=== PATIENT | male | born 1960 | race Caucasian/White ===

== ENCOUNTER 2017-10-20 16:36 | Outpatient (CLI) | payer OTHER ==
[2017-10-20 16:52] LABS: BASOPHILS % (AUTO) 0.4 % (0.0-3.0); EOSINOPHILS # (AUTO) 0.1 K/ul (0.0-0.7); EOSINOPHILS % (AUTO) 0.6 % (0.0-7.0); HEMATOCRIT 47.1 % (42.0-52.0); HEMOGLOBIN 16.6 g/dl (14.0-18.0); IMMATURE GRANULOCYTE % (AUTO) 0.3 % (0.0-5.0); LYMPHOCYTES # (AUTO) 2.1 K/uL (0.60-3.4); LYMPHOCYTES % (AUTO) 27.1 (10.0-50.0); MEAN CORPUSCULAR HEMOGLOBIN 32.6 pg (27.0-31.0); MEAN CORPUSCULAR HGB CONC 35.2 (31.8-35.4); MEAN CORPUSCULAR VOLUME 92.5 fl (80.0-94.0); MONOCYTES # (AUTO) 0.6 K/uL (0.4-2.0); MONOCYTES % (AUTO) 8.2 (0-10); NEUTROPHILS % (AUTO) 63.4; PLATELET COUNT 111 10^3/uL (140-440); RED BLOOD COUNT 5.09 10^6/ul (4.70-6.10); WHITE BLOOD COUNT 7.81 K/ul (4.2-10.2)
[2017-10-20 17:29] LABS: ALBUMIN 3.9 g/dL (3.4-5.0); ALBUMIN/GLOBULIN RATIO 1.18; ANION GAP 9.5; BILIRUBIN,TOTAL 0.4 mg/dL (0.00-1.20); BUN/CREATININE RATIO 11.22; CALCIUM 9.8 mg/dL (8.2-10.2); CHOL/HDL RATIO 4.3 (4.5-6.4); CREATININE 0.98 mg/dL (0.60-1.10); POTASSIUM 4.5 mmol/L (3.5-5.1); TOTAL PROTEIN 7.2 g/dL (6.4-8.2)
== END 2017-10-20 16:37 | disposition home or self-care (01) ==
LOC: LAB 16:36
PROVIDERS: ATTEND Emergency Medicine
DX: E78.5 Hyperlipidemia, unspecified (principal); I10 Essential (primary) hypertension
CPT/HCPCS: 36415; 80053; 80061; 84443; 85025

== ENCOUNTER 2018-01-18 15:19 | Outpatient (CLI) | END 2018-01-18 15:20 | disposition home or self-care (01) | LOC: RHC-LAB 15:19 | PROVIDERS: ATTEND Emergency Medicine | DX: E78.5 Hyperlipidemia, unspecified (principal); I10 Essential (primary) hypertension; Z12.5 Encounter for screening for malignant neoplasm of prostate | CPT/HCPCS: 36415; 80053; 80061; 84443; 85025 ==

== ENCOUNTER 2018-01-25 14:01 | Outpatient (CLI) ==
--- NOTE | 2018-01-25 16:11 | DI ---
EXAM: LEFT SHOULDER HISTORY: Left shoulder pain FINDINGS: Left shoulder three-view. Bone and joint structures are within normal limits. There is no joint dislocation or fracture identified. Bone density and soft tissues are unremarkable. IMPRESSION: Within normal limits.
--- NOTE | 2018-01-25 16:14 | DI ---
Exam: Three x-rays of the cervical spine. Comparison: None available. Reason for exam: Cervicalgia. FINDINGS: Multilevel degenerative disease with vertebral body height loss and osteophyte formation. There is straightening of the cervical lordotic curve. No evidence of listhesis. The dens appears intact on the open-mouth odontoid view. The prevertebral soft tissues are within normal limits. Impression: 1. Multilevel age indeterminate vertebral body height loss with degenerative disease seen throughout the cervical spine and straightening of the cervical lordotic curve. If clinical concern exists for radiculopathy or myelopathy, MRI may be performed for further characterization. 2. No cervical listhesis is seen.
== END 2018-01-25 14:02 | disposition home or self-care (01) ==
LOC: LAB 14:01 → RAD 14:02
PROVIDERS: ATTEND Emergency Medicine
DX: M54.2 Cervicalgia (principal); M25.512 Pain in left shoulder

== ENCOUNTER 2018-03-22 12:47 | Emergency (ER) ==
[2018-03-22 12:51] VITALS: BP 160/78; TEMP 98.2; BMI 24.7
[2018-03-22] MEDS ORDERED: SODIUM CHLORIDE 1,000 ML IV STA (13:00)
[2018-03-22] MEDS ORDERED: ZOFRAN 4 MG/2 ML IVP STA (13:00)
--- NOTE | 2018-03-22 13:42 | CT ---
EXAM: CT abdomen pelvis without contrast HISTORY: Abdominal pain COMPARISON: None TECHNIQUE: Serial axial images of the abdomen pelvis were performed from the lung bases through the inferior pelvis without contrast. These were viewed in multiple planes. FINDINGS: Lung bases are clear. Evaluation is limited due to lack of contrast. The liver is diffusely low in attenuation. Gallbladd er is distended. The adrenal glands are normal. The kidneys are unremarkable. The spleen is normal . The pancreas is unremarkable. The stomach is mildly distended. The small bowel in the abdomen pelvis is normal. The colon is unremarkable. The appendix is normal without evidence of appendicitis. There is no free air, free fluid or lymphadenopathy. Prostate is normal. The urinary bladder is distended. There is mild atherosclerotic disease. There is degenera tive change with narrowing at the lumbosacral junction. There is no lytic or blastic lesion. IMPRESSION: 1. No acute intra-abdominal or pelvic process to account for patient's symptoms. 2. Low attenuation throughout the liver consistent with hepatic steatosis. 3. Mild degenerative disease of the lumbosacral junction.
[2018-03-22] MEDS ORDERED: DEMEROL 50 MG/ML VIAL IVP STA (13:44)
--- NOTE | 2018-03-22 14:41 | ED.PDOC ---
General ED Provider: Dr. BLANCA GARCIA-ER Chief Complaint: Abdominal Pain Stated Complaint: im hurting and nauseated Time Seen by Physician: 12:50 Mode of Arrival: Walk-In Information Source: Patient Exam Limitations: No limitations Primary Care Provider: [facility] Nursing and Triage Documentation Reviewed and Agree: Yes Reviewed sepsis parameters & appropriate labs ordered?: Yes System Inflammatory Response Syndrome: Not Applicable Sepsis Protocol: For patient's 13 years and over: Temp is 96.8 and below OR 101 and greater Pulse >90 BPM Resp >20/minute Acutely Altered Mental Status Are patient's symptoms suggestive of a new infection, such as: -Pneumonia -Skin, Soft Tissue -Endocarditis -UTI -Bone, Joint Infection -Implantable Device -Acute Abdominal Infection -Wound Infection -Meningitis -Blood Stream Catheter Infection -Unknown GI Complaint Exam - Abdominal Pain Complaint/Exam Onset: Gradual Duration: 24 hrs Symptoms Are: Still present Timing: Intermittent Initial Severity: Mild Current Severity: Mild Location of Pain: Discrete, Epigastric Character: Reports: Dull, Aching Aggravating: Reports: Food Alleviating: Reports: None Associated Signs and Symptoms: Reports: Nausea, Vomiting, Diarrhea Testicular Torsion Risk Factors: Reports: None Surgical Obstruction Risk Factors: Reports: None Abdominal Findings: Present: None Differential Diagnoses: Pancreatitis Quality Indicator For Non-Traumatic Chest Pain/Syncope: EKG Performed Review of Systems - Review Of Systems Constitutional: Reports: No symptoms Eyes: Reports: No symptoms Ears, Nose, Mouth, Throat: Reports: No symptoms Respiratory: Reports: No symptoms Cardiac: Reports: No symptoms GI: Reports: Abdominal pain, Diarrhea, Nausea, Vomiting : Reports: No symptoms Musculoskeletal: Reports: No symptoms Skin: Reports: No symptoms Neurological: Reports: No symptoms Endocrine: Reports: No symptoms Hematologic/Lymphatic: Reports: No symptoms All Other Systems: Reviewed and Negative Past Medical History - Past Medical History Previously Healthy: No Endocrine: Reports: Unknown Cardiovascular: Reports: Unknown Respiratory: Reports: Unknown Hematological: Reports: Unknown Gastrointestinal: Reports: Unknown Genitourinary: Reports: Unknown Neuro/Psych: Reports: Unknown Musculoskeletal: Reports: Unknown Cancer: Reports: Unknown - Surgical History General Surgical History: Reports: Unknown - Family History Family History: Reports: Unknown - Social History Smoking Status: Former smoker Hx Substance Use: Yes (marijuana) Alcohol Screening: None Physical Exam - Physical Exam Appearance: Well-appearing, No pain distress, Well-nourished Pain Distress: Mild Eyes: BAKARI, EOMI, Conjunctiva clear ENT: Ears normal, Nose normal, Oropharynx normal Neck: Supple Respiratory: Airway patent, Breath sounds clear, Breath sounds equal, Respirations nonlabored Cardiovascular: RRR, Pulses normal, No rub, No murmur GI/: Soft, No masses, Bowel sounds normal, No Organomegaly, Tender Musculoskeletal: Normal strength Skin: Warm Neurological: Sensation intact Psychiatric: Affect appropriate, Mood appropriate Interpretation - Radiology Interpretation Radiology Interpretation By: Radiologist Radiology Results: Negative Exam Interpreted: CT Scan - EKG Interpretation Time of EKG #1: 14:53 Rate: Normal Rhythm: Sinus Ectopy: None [place]: NL ST Segment: Normal Interpretation: nsr Re-Evaluation - Re-Evaluation Time of Re-Evaluation: 14:53 Status: Improved Vital Signs Stable: Yes Pain Level: 1 Appearance: NAD Lungs: Clear Skin: Warm and Dry Neuro: Alert and Oriented X3 CV: RRR Critical Care Note - Critical Care Note Total Time (mins): 0 Course - Course Hematology/Chemistry: 03/22/18 13:10 03/22/18 13:10 Orders, Labs, Meds: Lab Review 03/22/18 03/22/18 03/22/18 13:10 13:10 13:10 WBC 12.10 H RBC 4.38 L Hgb 14.4 Hct 39.2 L MCV 89.5 MCH 32.9 H MCHC 36.7 H RDW Coeff of Aydee 13.5 Plt Count 134 L Immature Gran % (Auto) 0.4 Neut % (Auto) 78.3 Lymph % (Auto) 15.5 [place] % (Auto) 5.7 Eos % (Auto) 0.0 Baso % (Auto) 0.1 Immature Gran # (Auto) 0.1 Neut # (Auto) 9.5 H Lymph # (Auto) 1.9 [place] # (Auto) 0.7 Eos # (Auto) 0.0 Baso # (Auto) 0.0 Sodium 135 L Potassium 3.8 Chloride 97 L Carbon Dioxide 25 Anion Gap 16.8 BUN 16 Creatinine 0.97 Estimated GFR (MDRD) 80.00 BUN/Creatinine Ratio 16.49 Glucose 105 H Calcium 9.8 Total Bilirubin 0.8 AST 39 H ALT 48 Alkaline Phosphatase 61 Total Creatine Kinase 333 CK-MB (CK-2) 4.6 H CK-MB (CK-2) % 1.26632 Troponin I 0.0130 Total Protein 6.8 Albumin 4.0 Globulin 2.8 Albumin/Globulin Ratio 1.43 Amylase 50 Lipase 35 Urine Color Urine Clarity Urine pH Ur Specific Cook Sta Urine Protein Urine Glucose (UA) Urine Ketones Urine Blood Urine Nitrite Urine Bilirubin Urine Urobilinogen Ur Leukocyte Esterase 03/22/18 14:28 WBC RBC Hgb Hct MCV MCH MCHC RDW Coeff of Aydee Plt Count Immature Gran % (Auto) Neut % (Auto) Lymph % (Auto) [place] % (Auto) Eos % (Auto) Baso % (Auto) Immature Gran # (Auto) Neut # (Auto) Lymph # (Auto) [place] # (Auto) Eos # (Auto) Baso # (Auto) Sodium Potassium Chloride Carbon Dioxide Anion Gap BUN Creatinine Estimated GFR (MDRD) BUN/Creatinine Ratio Glucose Calcium Total Bilirubin AST ALT Alkaline Phosphatase Total Creatine Kinase CK-MB (CK-2) CK-MB (CK-2) % Troponin I Total Protein Albumin Globulin Albumin/Globulin Ratio Amylase Lipase Urine Color Yellow Urine Clarity Clear Urine pH 6.5 Ur Specific Cook Sta 1.010 Urine Protein Negative Urine Glucose (UA) Negative Urine Ketones 1+ Urine Blood Negative Urine Nitrite Negative Urine Bilirubin Negative Urine Urobilinogen 1.0 Ur Leukocyte Esterase Negative Orders Category Date Time Status EKG-(ED ONLY) Stat CARDIO 03/22/18 12:59 Completed ED IV/MEDIPORT/POWERPORT .ONCE EMERGENCY 03/22/18 13:00 Active AMYLASE Stat LAB 03/22/18 13:10 Completed CBC W/ AUTO DIFF Stat LAB 03/22/18 13:10 Completed COMPREHENSIVE METABOLIC PANEL Stat LAB 03/22/18 13:10 Completed CREATINE KINASE Stat LAB 03/22/18 13:10 Completed LIPASE Stat LAB 03/22/18 13:10 Completed TROPONIN I Stat LAB 03/22/18 13:10 Completed URINALYSIS C & S IF INDICATED Stat LAB 03/22/18 14:28 Completed 0.9 % Sodium Chloride [Saline Flush] MEDS 03/22/18 13:00 Ordered 1 syr IVF PRN PRN Meperidine HCl/Pf [Demerol 50 mg/ml Vial] MEDS 03/22/18 13:44 Discontinued 25 mg IVP ONCE STA Ondansetron HCl/Pf [Zofran 4 mg/2 ml] MEDS 03/22/18 13:00 Discontinued 4 mg IVP ONCE STA Sodium Chloride 0.9% [Sodium Chloride] 1,000 ml MEDS 03/22/18 13:[address] ABDOMEN/PELVIS WO CONTRAST Stat RADS 03/22/18 13:00 Completed Medications Generic Name Dose Route Start Last Admin Trade Name Nilesh PRN Reason Stop Dose Admin Sodium Chloride 1 syr 03/22/18 13:00 03/22/18 13:35 Saline Flush IVF 1 syr PRN PRN Administration To flush IV Discontinued Medications Generic Name Dose Route Start Last Admin Trade Name Nilesh PRN Reason Stop Dose Admin Sodium Chloride 1,000 mls @ 1,000 mls/hr 03/22/18 13:00 03/22/18 13:34 Sodium Chloride IV 03/22/18 13:59 1,000 mls/hr BOLUS STA Administration Meperidine HCl 25 mg 03/22/18 13:44 03/22/18 13:52 Demerol 50 Mg/Ml Vial IVP 03/22/18 13:45 25 mg ONCE STA Administration Ondansetron HCl 4 mg 03/22/18 13:00 03/22/18 13:33 Zofran 4 Mg/2 Ml IVP 03/22/18 13:01 4 mg ONCE STA Administration Vital Signs: Temp Pulse Resp BP Pulse Ox 03/22/18 12:48 98.2 F 68 16 160/78 H 98 Departure - Departure Time of Disposition: 14:53 Disposition: HOME SELF-CARE Discharge Problem: Abdominal pain Instructions: Acute Abdominal Pain (ED) Condition: Good Pt referred to PMD for follow-up: Yes IPMP verified?: No Additional Instructions: zofran 4mg q 4hrs prn #6--librax q 6hrs prn pain #10--low fat diet===talk to your pcp about gb testing Allergies/Adverse Reactions: Allergies diphenhydramine HCl [From Benadryl] Allergy (Severe, Verified 03/22/18 12:51) rash Patient will notify drugstore Home Medications: Ambulatory Orders Albuterol Sulfate [Proair Hfa] 8.5 gm IH PRN PRN 10/20/17 Budesonide/Formoterol Fumarate [Symbicort 160-4.5 Mcg Inhaler] 10.2 gm IH PRN 12 /26/17 Trazodone HCl 150 mg PO d 10/20/17 Disposition Discussed With: Patient
== END 2018-03-22 15:02 | disposition home or self-care (01) ==
LOC: ED 12:47
DX: R10.13 Epigastric pain (principal); R11.2 Nausea with vomiting, unspecified; R19.7 Diarrhea, unspecified
CPT/HCPCS: 36415; 80053; 81001; 82150; 82550; 82553; 83690; 84484; 85025; 93005; 93010; 96361; 96372; 96374; 96375; 99282; 99283

== ENCOUNTER 2018-03-22 20:52 | Emergency (ER) ==
[2018-03-22 21:10] VITALS: BP 174/87; TEMP 99.6; BMI 26.2
[2018-03-22] MEDS ORDERED: PHENERGAN 25 MG/ML VIAL IM STA (21:21)
[2018-03-22] MEDS ORDERED: PROTONIX PO STA (21:21)
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
== END 2018-03-22 21:55 | disposition home or self-care (01) ==
LOC: ED 20:52
DX: R10.13 Epigastric pain (principal)
CPT/HCPCS: 96372; 99282

== ENCOUNTER 2018-03-31 06:16 | Outpatient (CLI) | payer OTHER ==
--- NOTE | 2018-03-31 09:54 | US ---
EXAM: Ultrasound abdomen limited. HISTORY: Right upper quadrant pain. COMPARISON: CT 03/22/2018. TECHNIQUE: Abdominal, real time with image documentation: limited (eg, single organ, quadrant, foll ow-up) FINDINGS: The liver demonstrates increased parenchymal echogenicity with a few rounded foci of decre ased echogenicity near the gallbladder. There is no intrahepatic biliary dilatation. Portal venous flow is normal in direction. The gallbladder is without shadowing stones, wall thickening or pericho lecystic fluid. Common duct measures approximately 0.2 cm. Visualized portions of the pancreas are unremarkable. IMPRESSION: Fatty infiltration of the liver with probable areas of fatty sparing. Correlate with MRI if further evaluation is needed.
== END 2018-03-31 06:17 | disposition home or self-care (01) ==
LOC: RAD 06:16
PROVIDERS: ATTEND Emergency Medicine
DX: R10.11 Right upper quadrant pain (principal)

== ENCOUNTER 2018-06-30 14:26 | Outpatient (CLI) | END 2018-06-30 14:27 | disposition home or self-care (01) | LOC: RHC-LAB 14:26 | PROVIDERS: ATTEND Emergency Medicine | DX: E78.5 Hyperlipidemia, unspecified (principal); I10 Essential (primary) hypertension | CPT/HCPCS: 36415; 80053; 80061; 84443; 85025 ==

== ENCOUNTER 2018-12-16 07:59 | Outpatient (CLI) | END 2018-12-16 08:00 | disposition home or self-care (01) | LOC: RHC-LAB 07:59 | PROVIDERS: ATTEND Nurse Practitioner Family | DX: E78.5 Hyperlipidemia, unspecified (principal) | CPT/HCPCS: 36415; 80053; 80061 ==

== ENCOUNTER 2019-01-16 12:54 | Emergency (ER) ==
[2019-01-16 13:06] VITALS: BP 157/92; TEMP 99.2; BMI 28.3
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
== END 2019-01-16 13:25 | disposition home or self-care (01) ==
LOC: ED 12:54
DX: L23.7 Allergic contact dermatitis due to plants, except food (principal)
CPT/HCPCS: 99282

== ENCOUNTER 2019-02-26 13:10 | Emergency (ER) | payer OTHER ==
[2019-02-26 13:25] VITALS: TEMP 98.2; BMI 26.7
[2019-02-26] MEDS ORDERED: SODIUM CHLORIDE 1,000 ML IV STA (13:48)
[2019-02-26] MEDS ORDERED: ZOFRAN 4 MG/2 ML IVP STA (13:49)
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
[2019-02-26] MEDS ORDERED: PEPCID IVP STA (14:22)
[2019-02-26] MEDS ORDERED: DILAUDID 1 MG/ML SYRINGE IVP STA (15:11)
--- NOTE | 2019-02-26 15:19 | CT ---
EXAM: CT of the abdomen pelvis with and without contrast History: Abdominal pain with nausea and vomiting and diarrhea. Comparison: Abdominal ultrasound 03/31/2018, CT abdomen pelvis 03/22/2018 Technique: Multiplanar CT images through the abdomen pelvis were obtained with and without the admin istration of IV contrast Findings: Lung bases are clear. No acute osseous abnormalities. Severe degenerative disc disease a t L5-S1. No renal stones and no hydronephrosis. No ureteral calculi. Atherosclerotic vascular calcifications . The liver is fatty. No gallstones identified by CT. No renal masses. No liver or splenic lesion s. Pancreas is unremarkable. Adrenal glands are within normal limits. No dilated loops of bowel. The appendix is normal. No free air and no ascites. Prostate is not enlarged. Bladder is not well distended. There is circumferential bladder wall thickening. No inflammatory stranding. No abdomin al aortic aneurysm. No lymphadenopathy. Impression: 1. Circumferential bladder wall thickening could be due to incomplete distension or cystitis. Corre late with urinalysis. 2. Hepatic steatosis. 3. Mild to moderate atherosclerotic vascular disease. 4. Severe degenerative disc disease at L5-S1
[2019-02-26] MEDS ORDERED: PHENERGAN 25 MG/ML VIAL 25 MG in SODIUM CHLORIDE 50 ML IV STA (15:43)
[2019-02-26] MEDS ORDERED: PHENERGAN 25 MG/ML VIAL ONE (15:47)
[2019-02-26 17:07] VITALS: BP 133/80
== END 2019-02-26 19:14 | disposition home or self-care (01) ==
LOC: ED 13:10
DX: K52.9 Noninfective gastroenteritis and colitis, unspecified (principal); I10 Essential (primary) hypertension; E78.5 Hyperlipidemia, unspecified; Z79.899 Other long term (current) drug therapy
CPT/HCPCS: 36415; 80053; 81001; 82150; 82550; 83690; 84145; 84484; 84550; 85025; 85379; 87040; 93005; 93010; 96361; 96365; 96375; 99284

== ENCOUNTER 2019-03-23 09:10 | Outpatient (CLI) | END 2019-03-23 09:11 | disposition home or self-care (01) | LOC: RHC-LAB 09:10 | PROVIDERS: ATTEND Nurse Practitioner Family | DX: L53.9 Erythematous condition, unspecified (principal); W57.XXXA Bitten or stung by nonvenomous insect and other nonvenomous arthropods, initial encounter | CPT/HCPCS: 36415; 86617; 86757; 87798 ==

== ENCOUNTER 2019-04-13 09:26 | Outpatient (CLI) | END 2019-04-13 09:27 | disposition home or self-care (01) | LOC: RHC-LAB 09:26 | PROVIDERS: ATTEND Nurse Practitioner Family | DX: L53.9 Erythematous condition, unspecified (principal); R76.8 Other specified abnormal immunological findings in serum; W57.XXXA Bitten or stung by nonvenomous insect and other nonvenomous arthropods, initial encounter; I10 Essential (primary) hypertension; F12.90 Cannabis use, unspecified, uncomplicated; E78.5 Hyperlipidemia, unspecified; Z12.5 Encounter for screening for malignant neoplasm of prostate | CPT/HCPCS: 36415; 80053; 80061; 85025 ==